=== PATIENT | female | born 1975 | race Caucasian/White ===

== ENCOUNTER 2022-10-16 19:53 | Emergency (ER) | payer OTHER, SELFPAY ==
[2022-10-16] VITALS (8 sets, daily range): BP systolic 142–168; BP diastolic 87–98; PULSE 110–123; RESP 18–26; TEMP 36.4–36.6; O2SAT 97–99
--- NOTE | ~2022-10-16 | XR_ITS ---
EXAMINATION: XR chest 2V DATE: 10/16/2022 21:27 INDICATION: Influenza presenting with cough and fever TECHNIQUE: PA and lateral views of the chest were obtained. COMPARISON: None FINDINGS: The lungs are clear with no focal airspace opacities, pulmonary edema, pleural effusion or pneumothor ax. The cardiomediastinal silhouette is normal. Surgical clips in the upper abdomen likely related to prior cholecystectomy. IMPRESSION: 1. No acute cardiopulmonary disease. Reviewed, dictated and finalized at location A. IR WELDER
[2022-10-16] MEDS: IPRATROPIUM 0.5 MG/ALBUTEROL SULFATE 2.5 MG AMPUL.NEB 3 ML INHALATION (20:35)
--- NOTE | 2022-10-16 21:02 | ED.GENADULT ---
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 SHE WAS SEEN BY HER PRIMARY CARE AND GOT STARTED AUGMENTIN WEEK AND HALF AGO SHE FINISHED THAT. AND THOUGHT SHE WAS GETTING BETTER BUT THEN SHE GOT WORSE 8 DAYS AGO SHE WAS AGAIN SEEN BY HER PRIMARY CARE AND PLACED ON A 5 DAY COURSE OF STEROIDS. SHE COMPLAINS OF PERSISTENT COUGH WITH THE SHORTNESS OF BREATH WITHOUT ANY CHEST PAIN NAUSEA VOMITING DIARRHEA SHE HAS HAD A FEVER. GENERAL ACHINESS AND FATIGUE. DENIES ANY NAUSEA VOMITING DIARRHEA CONSTIPATION BLEEDING OR BRUISING RASH OR ITCHING OR ANY OTHER COMPLAINTS. Related Data Home Medications Medication Instructions Recorded Confirmed simvastatin 20 mg tablet 20 mg PO DAILY 10/16/22 10/16/22 Allergies Allergy/AdvReac Type Severity Reaction Status Date / Time Sulfa (Sulfonamide Allergy Unknown Verified 10/16/22 20:06 Antibiotics) Review of Systems Review of Systems: All systems reviewed & are unremarkable except as noted in HPI and below Constitutional: Constitutional: Reports as per HPI and Reports no additional constitutional complaints Eyes: Eyes: Reports no additional eye complaints ENT: Reports system reviewed and no additional complaints, except as documented, Reports nasal congestion and Denies sore throat Cardiovascular: Cardiovascular: Reports no additional cardiovascular complaints and Denies chest pain Respiratory: Respiratory: Reports as per HPI, Reports no additional respiratory complaints, Reports chest congestion, Reports cough, Reports dyspnea and Reports wheezing Gastrointestinal: Gastrointestinal: Reports as per HPI and Reports no additional gastrointestinal complaints Genitourinary: Genitourinary: Reports no additional female genitourinary complaints and Reports as per HPI Musculoskeletal: Musculoskeletal: Reports no additional musculoskeletal complaints Comments: MYALGIAS Integumentary/Breasts: Skin/Breast: Reports as per HPI Neurologic: Reports system reviewed and no additional complaints, except as documented Exam Narrative: PATIENT IS A WHITE FEMALE SHE APPEARS IN NO APPARENT DISTRESS. HEAD IS NORMOCEPHALIC ATRAUMATIC EYES PUPILS ARE EQUAL ROUND REACT LIGHT EXTRAOCULAR MOVEMENTS ARE INTACT CONJUNCTIVA PINK SCLERA NONICTERIC. OROPHARYNX IS CLEAR WITH MOIST MUCOUS MEMBRANES WITHOUT EXUDATES. NECK IS SUPPLE NO LYMPHADENOPATHY. LUNGS SHOW SCATTERED WHEEZES WITH FAIR AIR EXCHANGE WITHOUT RHONCHI OR RALES. HEART IS REGULAR RATE AND RHYTHM WITHOUT MURMURS GALLOPS OR RUBS TACHYCARDIA WITH A PULSE OF 118 RESPIRATORY RATE 26 REPEAT 18 BLOOD PRESSURE 160/98 AFEBRILE 97% SAT ON ROOM AIR. ABDOMEN IS SOFT AND NONTENDER. EXTREMITIES NO CYANOSIS CLUBBING OR EDEMA. NEUROLOGICAL SHE IS ALERT AND ORIENTED X4 MOTOR AND SENSORY GROSSLY INTACT. SKIN IS WARM AND DRY. Const: Limitations: no limitations Course Course Emergency Course: PATIENT WAS GIVEN DUONEB NEBULIZER SHE SAID SHE COULD BREATHE DEEPER AND BETTER WITH THIS. RESPIRATORY CAME AND SHOWED PATIENT HOW TO USE AN ALBUTEROL INHALER WITH A SPACER. PATIENT WAS NEGATIVE FOR COVID AND RSV SHE WAS POSITIVE FOR FLU A. Vital Signs Vital signs: Vital Signs Temperature 36.4 C L 10/16/22 20:07 Pulse Rate 118 H 10/16/22 20:07 Respiratory Rate 26 H 10/16/22 20:07 Blood Pressure 168/98 H 10/16/22 20:07 Pulse Oximetry 97 10/16/22 20:07 Oxygen Delivery Room Air 10/16/22 20:07 Temperature 36.4 C L 10/16/22 20:07 Pulse Rate 110 H 10/16/22 20:48 Respiratory Rate 19 10/16/22 20:48 Blood Pressure 168/98 H 10/16/22 20:07 Pulse Oximetry 98 10/16/22 20:48 Oxygen Delivery Room Air 10/16/22 20:07 Medical Decision Making Vital Signs Vital Signs: Vital Signs
[2022-10-16 21:04] LABS: Influenza A QL RT-PCR Positive (Negative); Influenza B QL RT-PCR Negative (Negative); RSV RNA, RT-PCR Negative (Negative); SARS-CoV-2 RNA PCR Negative (Negative)
[2022-10-16] MEDS: ALBUTEROL SULFATE NEB 2.5 MG/3 ML INH 5 MG INHALATION (21:36)
[2022-10-16] MEDS: ALBUTEROL SULFATE (*SP) INHALER 2 PUFF INHALATION (22:09)
== END 2022-10-16 22:18 | disposition home or self-care (01) ==
PROVIDERS: Emergency Provider Emergency Medicine; PCP Family Medicine
DX: J10.1 Influenza due to other identified influenza virus with other respiratory manifestations (principal); J98.01 Acute bronchospasm; E78.5 Hyperlipidemia, unspecified; Z20.822 Contact with and (suspected) exposure to COVID-19
CPT/HCPCS: 71046; 87637; 94640; 99285; A9270

== ENCOUNTER 2022-10-20 10:38 | Inpatient (IN) | payer OTHER, SELFPAY ==
[2022-10-20] VITALS (9 sets, daily range): BP systolic 129–143; BP diastolic 66–81; PULSE 80–96; RESP 17–20; TEMP 36.3–38.6; O2SAT 98–100; BMI 34.5
--- NOTE | ~2022-10-20 | CT_ITS ---
EXAMINATION: CTA chest PE protocol DATE: 10/21/2022 14:27 INDICATION: Shortness of breath for one month. Elevated d-dimer. TECHNIQUE: Computed tomography angiography (CTA) of the chest was performed with 100 mL Omnipaque-350 intravenous contrast timed to evaluate the pulmonary arteries. Coronal maximum intensity projection 3D-reconstructions were created by the technologist. Automated exposure control and iterative reconst ruction technique were employed. Exam dose: 471.43 mGy-cm total exam DLP. COMPARISON: 10/20/2022 portable AP chest 10/16/2022 PA and lateral chest FINDINGS: There is moderate opacification the pulmonary arteries, without evidence of pulmonary embol ism. There are extensive patchy consolidation scattered throughout both lungs, without pleural effusion, s uspicious for bilateral extensive Covid pneumonia. 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 No thoracic aortic dis section. Heart size is within normal range. No pericardial effusion. No hilar or mediastinal mass lesion or lymphadenopathy. Status post cholecystectomy. Included portions of the adrenal glands and skeletal structures are normal. IMPRESSION: Extensive bilateral pulmonary infiltrates suggestive of Covid pneumonia No evidence of pulmonary embolism Mild posterior thoracic aortic arch aneurysm Reviewed, dictated and finalized at Location [facility]. Reviewed, dictated and finalized at location B. ND MIXER IMPRESSION: Extensive bilateral pulmonary infiltrates suggestive of Covid pneu monia No evidence of pulmonary embolism Mild posterior thoracic aortic arch aneurysm
--- NOTE | ~2022-10-20 | CT_ITS ---
EXAMINATION: CT abdomen pelvis wo con DATE: 10/22/2022 11:22 INDICATION: Low abdominal tenderness. TECHNIQUE: Computed tomography (CT) of the abdomen and pelvis was performed without intravenous contr ast. Automated exposure control and iterative reconstruction technique were employed. The dose-length product was 1257.14 mGy-cm. COMPARISON: Chest CT 10/21/2022 FINDINGS: The visualized portions of the lung bases demonstrate patchy airspace and groundglass opaci ties with a peripheral predominance. No pleural effusion. The heart size is normal. No pericardial ef fusion. There is a small sliding hiatal hernia. The liver is normal. There are changes of cholecystec monika. The spleen, pancreas, and adrenal glands are normal. There are two 1-2 mm stones in right kidne y. There is a 3.1 cm cyst in left kidney. There are nabothian cysts in the cervix. There are no dilat ed loops of bowel. The appendix is normal. There is enlargement of the right rectus abdominis muscle with an ill-defined mixed hyperdense and hypodense mass, consistent with a hematoma. There are no pat hologically enlarged lymph nodes. There is no free intraperitoneal fluid. There is mild lumbar spondy losis. IMPRESSION: 1. Hematoma in right rectus abdominis muscle. 2. Diffuse lung disease, consistent with pneumonia. Reviewed, dictated and finalized at location A. KER TABLE WORKER
--- NOTE | ~2022-10-20 | XR_ITS ---
EXAMINATION: XR chest 1V portable DATE: 10/20/2022 11:44 INDICATION: Cough. TECHNIQUE: A single frontal view of the chest was obtained. COMPARISON: Chest 2 views 10/16/2022 FINDINGS: The patient is rotated to her left. There are mild airspace opacities in right lower lung z one and left mid and lower lung zones. No pleural effusion or pneumothorax. The heart size is normal. IMPRESSION: 1. Worsened mild airspace opacities in right lower lung zone and left mid and lower lung zones, consi stent with atelectasis versus pneumonia. Reviewed, dictated and finalized at location A. S RE[employer]ENT[employer] IMPRESSION: 1. Worsened mild airspace opacities in right lower lung zone and left mid and l ower lung zones, consistent with atelectasis versus pneumonia.
--- NOTE | 2022-10-20 10:55 | ED.URI ---
HPI - URI/Sore Throat General Chief Complaint: Upper Respiratory Infection Stated Complaint: fever/cough/chest pain/ Time Seen by Provider: 10/20/22 10:55 Source: patient Mode of arrival: ambulatory History of Present Illness HPI Narrative: 47-year-old female was noted to have upper respiratory tract infection with bronchospasm. She was treated with a course of Augmentin which she finished 4 days ago. She presented to the ER on 10/16/2022 and was noted to be positive for influenza A. She had bronchospasm and was treated with bronchodilators and prednisone 40 mg daily. She continues to have ongoing -- cough with mucopurulent sputum -- fever which is subjective. -- Shortness of breath -- Chest wall pain involving the lower ribs in the upper abdomen which is made worse with coughing. no chest pain MD elicited complaint: fever and cough Onset (ago): day(s) ( symptoms started approximately 2 weeks ago.) Consistency: intermittent Severity: moderate Description of mucous: green Able to tolerate fluids by mouth: Yes Exacerbating factors: nothing Relieving factors: nothing Associated symptoms: fever, chills, cough and shortness of breath Treatments prior to arrival: none Related Data Home Medications Medication Instructions Recorded Confirmed simvastatin 20 mg tablet 20 mg PO DAILY 10/16/22 10/20/22 trazodone 100 mg tablet 100 mg PO QHS 10/20/22 10/20/22 venlafaxine 75 mg capsule,extended 75 mg PO DAILY 10/20/22 10/20/22 release 24 hr Allergies Allergy/AdvReac Type Severity Reaction Status Date / Time Sulfa (Sulfonamide Allergy Unknown Verified 10/20/22 10:53 Antibiotics) Review of Systems Review of Systems: All systems reviewed & are unremarkable except as noted in HPI and below Constitutional: Constitutional: Reports as per HPI and Reports no additional constitutional complaints Eyes: Eyes: Reports as per HPI and Reports no additional eye complaints ENT: Reports system reviewed and no additional complaints, except as documented and Reports as per HPI Cardiovascular: Cardiovascular: Reports as per HPI and Reports no additional cardiovascular complaints Respiratory: Respiratory: Reports as per HPI, Reports cough and Reports dyspnea Gastrointestinal: Gastrointestinal: Reports as per HPI and Reports no additional gastrointestinal complaints Genitourinary: Genitourinary: Reports no additional female genitourinary complaints and Reports as per HPI Musculoskeletal: Musculoskeletal: Reports no additional musculoskeletal complaints and Reports as per HPI Integumentary/Breasts: Skin/Breast: Reports system reviewed and no additional complaints, except as docu and Reports as per HPI Neurologic: Reports system reviewed and no additional complaints, except as documented and Reports as per HPI Psychiatric: Psychiatric: Reports no additional psychiatric complaints and Reports anxiety Endocrine: Endocrine: Reports no additional endocrine complaints and Reports as per HPI Hematologic/Lymphatic: Hematologic/Lymphatic: Reports no additional hematologic/lymphatic complaints and Reports as per HPI Allergic/Immunologic: Allergic/Immunologic: Reports no additional allergic/immunologic complaints and Reports as per HPI Exam Const: General: healthy appearing and no acute distress Nutritional Appearance: well nourished Orientation/consciousness: patient oriented x3 Limitations: no limitations HENMT: Head: normal to inspection Ears: external ears normal Face/Nose/Sinus: Normal external nose present Face and sinus: normal facial exam Mouth: Yes Normal oral and palatal mucosa present Throat: posterior oropharynx normal Eyes: Conjunctivae: conjunctivae normal Pupils: Equal, round and reactive pupils present EOM: EOMs intact bilaterally Direct Ophthalmoscopy: no photophobia Neck: Neck: normal visual inspection, no lymphadenopathy and no meningeal signs Chest: Chest palpation & inspection: normal inspection of the adrian
[2022-10-20 11:41] LABS: Hematocrit 26.2 % (35.0-49.0); Hemoglobin 7.2 g/dL (12.0-15.0); Mean Corpuscular HGB Conc 27.5 g/dL (32.0-36.0); Mean Corpuscular Hemoglobin 19.3 pg (27.0-31.0); Mean Corpuscular Volume 70.1 fL (78.0-102.0); Mean Platelet Volume 9.6 fl (9.2-11.8); Platelet Count Result 154 K/mm3 (150-420); Red Blood Count 3.74 M/mm3 (4.20-5.40); Red Cell Distribution Width 20.5 % (11.6-14.4); White Blood Count 3.6 K/mm3 (4.8-10.8)
[2022-10-20 11:43] LABS: Add Urine Microscopic? YES; Appearance Urine Clear (Clear); Bilirubin Urine Negative (Negative); Blood Urine Negative (Negative); Color Urine Yellow (Yellow); Glucose Urine UA Negative (Negative); Ketones Urine Trace (Negative); Leukocyte Esterase Ur Negative (Negative); Nitrate Urine Negative (Negative); Protein Urine Trace (Negative); Specific Grav Ur 1.025 (1.010-1.020)
[2022-10-20 11:49] LABS: Bacteria Urine Trace /hpf; Mucus Urine Moderate /lpf; RBC Urine None seen /hpf (0-2); Squamous Epithelial Cell Urine Moderate /hpf (Few); WBC Urine 0-3 /hpf (0-3)
[2022-10-20 11:55] LABS: INR 0.9; Prothrombin Time 10.3 Seconds (9.50-12.10)
[2022-10-20 12:00] LABS: Band Neutrophils Percent 4 % (0-6); Basophils Percent Manual 0 % (0-1); Eosinophils Absolute Manual 0.03 K/mm3 (0.02-0.5); Eosinophils Percent Manual 1 % (1-6); Lymphocytes Absolute Manual 0.21 K/mm3 (1.1-4.5); Lymphocytes Percent Manual 6 % (18-44); Monocytes Absolute Manual 0.07 K/mm3 (0.1-0.90); Monocytes Percent Manual 2 % (3-9); Neutrophils Absolute Manual 3.27 K/mm3 (1.7-7.2); Neutrophils Percent Manual 87 % (46-73); Platelet Estimate Adequate (Adequate); Total Cells Counted 100
[2022-10-20 12:08] LABS: Pregnancy On Board Control Positive; Urine Pregnancy Test Negative
[2022-10-20 12:28] LABS: Immature Reticulocyte Fraction 14.1 % (2.0-16.52); Reticulocyte Hemoglobin Conten 21.1 pg (28.0-35.0); Reticulocyte Percent 0.47 % (0.50-1.50); Reticulocytes Absolute 0.02 M/mm3 (0.02-0.1)
--- NOTE | 2022-10-20 13:01 | PC.NURSE ---
LUNCH TRAY ORDERED PER ERP REQUEST
[2022-10-20 13:14] LABS: Iron 14 ug/dL (50-170); Percent Iron Saturation 3 % (12-57)
[2022-10-20 13:17] LABS: Anion Gap 10 mmol/L (8-16); Blood Urea Nitrogen 10 mg/dL (7-18); Calcium 8.8 mg/dL (8.5-10.1); Carbon Dioxide 26 mmol/L (21-32); Chloride 101 mmol/L (98-108); Estimated CRCL calculation 71 ml/min; Estimated Glomerular Filt Rate 59; Glucose 149 mg/dL (70-99); Osmolality Calculated 286 mOsm/kg (285-295); Potassium 3.7 mmol/L (3.5-5.1); Sodium 137 mmol/L (136-145)
[2022-10-20 13:18] LABS: Alanine Aminotransferase 83 U/L (14-59); Albumin Level 3.1 g/dL (3.4-5.0); Alkaline Phosphatase 75 U/L (46-116); Aspartate Amino Transferase 107 U/L (15-37); Bilirubin,Total 0.2 mg/dL (0.00-1.00); Total Protein 7.6 g/dL (6.4-8.2)
[2022-10-20 13:25] LABS: NT Pro B Type Natriuretic Pept 64 pg/mL (0-125)
[2022-10-20 13:29] LABS: Lactic Acid Reflex 1.2 mmol/L (0.4-2.0)
[2022-10-20 13:30] LABS: Lactate Dehydrogenase 393 U/L (81-234); Troponin I 17.6 ng/L (0.00-60.4)
[2022-10-20] MEDS: guaiFENesin/DEXTROMETHORPHAN 5 ML UDC PO (14:46)
[2022-10-20] MEDS: ONDANSETRON INJ 4 MG/2 ML VIAL IV PUSH ×2 (14:46→20:59)
[2022-10-20] MEDS: BENZONATATE 100 MG CAPSULE PO (14:46)
[2022-10-20] MEDS: ACETAMINOPHEN 325 MG TABLET 650 MG PO (15:43)
[2022-10-20] MEDS: traZODone HCL 50 MG TABLET 100 MG PO (21:00)
[2022-10-21] VITALS (15 sets, daily range): BP systolic 116–120; BP diastolic 61–70; PULSE 68–119; RESP 18–20; TEMP 36.1–38.6; O2SAT 80–98
--- NOTE | 2022-10-21 00:20 | PC.NURSE ---
Pt resting quietly in bed and has a temperature of 101.4. Pt given tylenol 650 mg PO to relieve elevated temperature.
[2022-10-21] MEDS: ACETAMINOPHEN 325 MG TABLET 650 MG PO (00:21)
--- NOTE | 2022-10-21 01:30 | PC.NURSE ---
Pt's temp is 97.5 per temporal scanner. Pt doesnt voice any c/o pain at this time.
--- NOTE | 2022-10-21 04:15 | PC.NURSE ---
Pt's SAO2 is 80% on room air; Pt started on oxygen at 3 liters per nasal cannula and SAO2 increased to 96% with oxygen on at 3 liters.
--- NOTE | 2022-10-21 05:19 | PC.NURSE ---
Pt's SAO2 rechecked and was 96%; Oxygen was titrated down to 2 liters and pt's saturation was 95% with oxygen on at 2 liters.
--- NOTE | 2022-10-21 05:35 | PC.NURSE ---
Pt's sister, Kyleigh Fisher, called to check on pt's night. Report given at this time.
[2022-10-21 05:44] LABS: Hematocrit 25.6 % (35.0-49.0); Hemoglobin 7.2 g/dL (12.0-15.0); Mean Corpuscular HGB Conc 28.1 g/dL (32.0-36.0); Mean Corpuscular Hemoglobin 19.7 pg (27.0-31.0); Mean Corpuscular Volume 69.9 fL (78.0-102.0); Mean Platelet Volume 9.7 fl (9.2-11.8); Platelet Count Result 140 K/mm3 (150-420); Red Blood Count 3.66 M/mm3 (4.20-5.40); Red Cell Distribution Width 20.6 % (11.6-14.4); White Blood Count 3.7 K/mm3 (4.8-10.8)
[2022-10-21 05:52] LABS: Anion Gap 7 mmol/L (8-16); Blood Urea Nitrogen 10 mg/dL (7-18); Calcium 8.8 mg/dL (8.5-10.1); Carbon Dioxide 31 mmol/L (21-32); Chloride 101 mmol/L (98-108); Estimated CRCL calculation 73 ml/min; Estimated Glomerular Filt Rate > 60; Glucose 125 mg/dL (70-99); Osmolality Calculated 288 mOsm/kg (285-295); Sodium 139 mmol/L (136-145)
[2022-10-21 06:01] LABS: Band Neutrophils Percent 0 % (0-6); Lymphocytes Absolute Manual 1.22 K/mm3 (1.1-4.5); Lymphocytes Percent Manual 33 % (18-44); Neutrophils Absolute Manual 2.36 K/mm3 (1.7-7.2); Neutrophils Percent Manual 64 % (46-73); Total Cells Counted 100
[2022-10-21 06:02] LABS: Atypical Lymphocytes Present; Basophils Percent Manual 0 % (0-1); Eosinophils Percent Manual 0 % (1-6); Monocytes Absolute Manual 0.11 K/mm3 (0.1-0.90); Monocytes Percent Manual 3 % (3-9); Nucleated Red Blood Cells 2 %; Platelet Estimate Adequate (Adequate)
--- NOTE | 2022-10-21 06:10 | PC.NURSE ---
Kishan De León NP, notified of pt's low SA02 at 0400 and oxygen being ordered for pt. No new orders at this time.
[2022-10-21] MEDS: VENLAFAXINE HCL XR 75 MG CAP.ER.24H PO (09:01)
[2022-10-21] MEDS: SIMVASTATIN 10 MG TABLET 20 MG PO (09:01)
[2022-10-21] MEDS: ENOXAPARIN 40 MG/0.4 ML SYRINGE SUB-Q (09:02)
--- NOTE | 2022-10-21 11:33 | PM.SD2 ---
Same Day Admit/Disch: HPI History of Present Illness Chief complaint: fever/cough/chest pain/ Narrative: Ninfa Fisher is a 47 year old female That presented to arm urgency department with complaints of fever cough and discomfort due to excessive coughing with shortness of breath. Patient has a past medical history of high cholesterol and depression. According to patient she has been sick for approximately 2 months now. Patient notes that she went to her primary care physician on the and and was prescribed antibiotics. She is unsure why she received antibiotics. Patient tested positive for influenza on 10/16/2022. patient notes that her condition improved but worsened once again she continued to experience excessive coughing, and shortness of breath. Patient WBC 3.6, hemoglobin 7.2, hematocrit 26.2, platelets 159, sodium 137, potassium 3.7, BUN 10, creatinine 1.00, glucose 149, lactic acid 1.2, RN 14, TIBC 433 AST 107 ALT 83 troponin 17.6 BUN 64 chest x-ray indicates pneumonia. Patient will be treated for pneumonia with azithromycin Rocephin. patient will require home oxygen on discharge. Patient continues to complain of dizziness rib pain due to excessive coughing and shortness of breath. The patient denies CP, palpitation, extremity numbness, lightheadedness, constipation, diarrhea, chills, or fever. [facility] Past Medical History Medical History (Updated 10/21/22 @ 12:46 by FLACA Rea) Depressed HLD (hyperlipidemia) Social History Social History Smoking status: Never smoker Alcohol intake: current Drinks per week: 1 Substance use: never Substance use type: does not use Lack of Transportation: No Lack of Food: Never True Current Housing: I Have Housing Concerned About Future Housing: No Difficulty Paying Gas/Electric Bills: No Difficulty Paying for Meds: No Currently Unemployed: No Education: High School Diploma/GED Difficulty w/ Childcare or Family Care: No Spiritual care concerns: No Same Day Admit/Disch: Med Pre-admit Medications Home Medications Medication Instructions Recorded Confirmed Type prednisone 20 mg tablet 40 mg PO DAILY 5 days #10 tabs 10/16/22 10/20/22 Rx simvastatin 20 mg tablet 20 mg PO DAILY 10/16/22 10/20/22 History trazodone 100 mg tablet 100 mg PO QHS 10/20/22 10/20/22 History venlafaxine 75 mg capsule,extended 75 mg PO DAILY 10/20/22 10/20/22 History release 24 hr Exam Narrative: GENERAL: This is a well-nourished, Appears to have a mental delay, in no apparent distress. HEAD: normocephalic, atraumatic. EYES: PERRL. Sclera clear/white. Vision is grossly intact. EARS: External ears normal, auditory canals clear and without drainage, TMs normal without perforation. Hearing grossly intact. NOSE: External nose normal with no obvious nasal discharge, nares without redness, no rhinorrhea. THROAT: Mucous membranes moist, posterior pharynx clear. NECK: Neck supple, non-tender without lymphadenopathy, masses or thyromegaly. CARDIOVASCULAR: Regular rate and rhythm without murmurs, gallops, or rubs. RESPIRATORY: Clear to auscultation. Breath sounds equal bilaterally. No wheezes, rales, or rhonchi. GASTROINTESTINAL: Abdomen soft, non-tender, nondistended. Bowel sounds are active. No hepato-splenomegaly, or palpable masses. No guarding. SKIN: warm, intact with no suspicious lesions or rash, good texture and turgor. NEURO: awake, alert, and oriented to person, place and time. There were no obvious focal neurologic abnormalities. EXTREMITIES: Normal range of motion. No edema. No calf tenderness. DS: Data Data Completed and Pending Labs on day of discharge: Labs from last 24 hours 10/21/22 10/21/22 10/20/22 04:51 04:51 11:34 WBC 3.7 L RBC 3.66 L Hgb 7.2 L Hct 25.6 L MCV 69.9 L MCH 19.7 L MCHC 28.1 L RDW 20.6 H Plt Count 140 L MPV 9.7 Immatu
--- NOTE | 2022-10-21 12:28 | HOMEO2EVAL ---
Evaluation was performed at [facility] Home Oxygen Evaluation RC: Home Oxygen (O2) Evaluation Start: 10/21/22 11:12 Freq: ONCE Status: Active Protocol: RPE Activity Type Activity Date Activity User E-sign Co-sign Detail Recorded Client Recorded Date Recorded By Document 10/21/22 11:30 [email or web address] [email or web address] 10/21/22 12:27 SJB Document 10/21/22 11:33 [email or web address] [email or web address] 10/21/22 12:27 SJB Document 10/21/22 11:35 [email or web address] 10/21/22 12:27 SJB Document 10/21/22 11:40 [email or web address] [email or web address] 10/21/22 12:27 SJB 10/21/22 10/21/22 10/21/22 11:30 11:33 11:35 Home O2 Evaluation [Oxygen] -Test Phase Resting Resting Resting -Oxygen Delivery Room Air Nasal Cannula Nasal Cannula -Oxygen Flow Rate (L/min) 1 2 [Pulse Oximetry] -Pulse Oximetry (90-100 %) 80 L 87 L 92 [Pulse Rate] -Pulse Rate (60-100 beats/min) 107 H 99 97 [Evaluation] -Activity Tolerance -Rating of Perceived Dyspnea (PD) -Rate of Perceived Exertion (PE) Query Text:Click the Protocol Button to View the RPE Scale [Exercise] -Ambulation Distance (feet) -Ambulation Distance (meters) [Comments] -Home Oxygen Evaluation Comments Pt's Sp02 was At rest on 1 Pt's Sp02 is 92 80% on r/a, lpm, pt's Sp02 % on 2 lpm, will start on only got up to will begin walk 02 at 1 lpm. 87%. Pt taught now in room PLB. Will due to being on increase to 2 precautions. lpm. [Charges] -Treatment Charges O2 Evaluation - Outpatient 10/21/22 11:40 Home O2 Evaluation [Oxygen] -Test Phase -Oxygen Delivery Nasal Cannula -Oxygen Flow Rate (L/min) 2 [Pulse Oximetry] -Pulse Oximetry (90-100 %) 91 [Pulse Rate] -Pulse Rate (60-100 beats/min) 119 H [Evaluation] -Activity Tolerance Fair -Rating of Perceived Dyspnea (PD) +2 Mild, Some Difficulty, Noticeable to the Observer -Rate of Perceived Exertion (PE) 15 Hard Query Text:Click the Protocol Button to View the RPE Scale [Exercise] -Ambulation Distance (feet) 800 -Ambulation Distance (meters) 243.82 [Comments] -Home Oxygen Evaluation Comments Pt walked approx 80 ft on 2 lpm in room. Sp02s stayed between 90-91%. HR up to 119. Pt did not complain of SOB , her c/o were of becoming dizzy and nauseated while walking. She stated she needed to stop at that time. [Charges] -Treatment Charges
[2022-10-21] MEDS: IBUPROFEN 400 MG TABLET PO (12:30)
--- NOTE | 2022-10-21 12:51 | ECG_ITS ---
Measurements Intervals [place] Rate: 79 P: 44 OH: 126 QRS: 62 QRSD: 98 T: 27 QT: 358 QTc: 411 Interpretive Statements SINUS RHYTHM DELAYED PRECORDIAL R/S TRANSITION BORDERLINE ST-T WAVE ABNORMALITY- INFERIOR LEADS BASELINE WANDER- V4-V6 BORDERLINE ECG NO PREVIOUS ECG AVAILABLE FOR COMPARISON Electronically Signed On 10-21-2022 13:57:17 EDITOR DEPARTMENT by Jose L Bowman D.O.
[2022-10-21] MEDS: ONDANSETRON INJ 4 MG/2 ML VIAL IV PUSH (13:05)
[2022-10-21 14:03] LABS: Thyroid Stimulating Hormone 0.31 uIU/mL (0.36-3.74)
[2022-10-21 14:05] LABS: Ferritin 159 ng/mL (8-252); Folic Acid 12.6 ng/mL (8.6->20); Vitamin B12 1082 pg/mL (193-986)
[2022-10-21] MEDS: BENZONATATE 100 MG CAPSULE PO (20:08)
[2022-10-21] MEDS: traZODone HCL 50 MG TABLET 150 MG PO (20:08)
[2022-10-21] MEDS: ENOXAPARIN 100 MG/ML SYRINGE 97 MG SUB-Q (20:08)
[2022-10-21] MEDS: guaiFENesin/DEXTROMETHORPHAN 5 ML UDC PO (20:09)
[2022-10-22] VITALS (11 sets, daily range): BP systolic 100–117; BP diastolic 51–73; PULSE 68–87; RESP 14–18; TEMP 36.4–37.1; O2SAT 90–97
[2022-10-22 05:17] LABS: Hematocrit 24.2 % (35.0-49.0); Mean Corpuscular HGB Conc 27.7 g/dL (32.0-36.0); Mean Corpuscular Hemoglobin 19.3 pg (27.0-31.0); Mean Corpuscular Volume 69.7 fL (78.0-102.0); Mean Platelet Volume 10.1 fl (9.2-11.8); Platelet Count Result 150 K/mm3 (150-420); Red Blood Count 3.47 M/mm3 (4.20-5.40); Red Cell Distribution Width 20.6 % (11.6-14.4); White Blood Count 4.5 K/mm3 (4.8-10.8)
[2022-10-22 05:24] LABS: Hemoglobin 6.7 g/dL (12.0-15.0)
--- NOTE | 2022-10-22 05:25 | PC.NURSE ---
Lab called to report a critical Hgb of 6.7.
[2022-10-22 05:34] LABS: Alanine Aminotransferase 50 U/L (14-59); Albumin Level 2.6 g/dL (3.4-5.0); Alkaline Phosphatase 63 U/L (46-116); Anion Gap 6 mmol/L (8-16); Aspartate Amino Transferase 88 U/L (15-37); Bilirubin,Total 0.2 mg/dL (0.00-1.00); Blood Urea Nitrogen 10 mg/dL (7-18); Calcium 8.8 mg/dL (8.5-10.1); Carbon Dioxide 32 mmol/L (21-32); Chloride 101 mmol/L (98-108); Estimated CRCL calculation 84 ml/min; Estimated Glomerular Filt Rate > 60; Glucose 112 mg/dL (70-99); Magnesium 1.7 mg/dL (1.8-2.4); Osmolality Calculated 288 mOsm/kg (285-295); Potassium 4.1 mmol/L (3.5-5.1); Sodium 139 mmol/L (136-145)
--- NOTE | 2022-10-22 06:23 | PC.NURSE ---
Kashif Mckinney NP, returned voice mail message regarding pt's critical Hgb; New orders received and noted.
[2022-10-22] MEDS: SIMVASTATIN 10 MG TABLET 20 MG PO (08:33)
[2022-10-22] MEDS: VENLAFAXINE HCL XR 75 MG CAP.ER.24H PO (08:33)
--- NOTE | 2022-10-22 09:06 | PC.NURSE ---
LAC IV site leaking. transfusion stopped at 0855. New IV site established in right wrist. Transfusion restarted at 0900
[2022-10-22] MEDS: ACETAMINOPHEN 325 MG TABLET 650 MG PO (09:08)
[2022-10-22] MEDS: BENZONATATE 100 MG CAPSULE PO ×2 (09:08→20:25)
[2022-10-22] MEDS: SODIUM CHLORIDE 0.9% IV 250 ML 30 ML IV CONT (09:40)
--- NOTE | 2022-10-22 09:48 | ADMGEN ---
This patient, Ninfa Fisher, was admitted to 2nd Floor Room 226-2. Patient/family oriented to hospital policies and general routines including ID bracelet, bed and alarms, visiting hours, pain management, procedures, bathroom and other care routines, personal items, smoking policy, room service/diet, and visiting hours. Information on how to activate the Rapid Response Team has been discussed. Patient/Family are encouraged to report perceived risks to care and to ask questions if they do not understand what they are told or what they should do.
--- NOTE | 2022-10-22 09:49 | PC.NURSE ---
Blood product increased to 250 ml/hour.
[2022-10-22 10:08] LABS: SARS-CoV-2 RNA PCR Negative (Negative)
[2022-10-22 11:30] LABS: Hematocrit 29.2 % (35.0-49.0); Hemoglobin 8.3 g/dL (12.0-15.0); Mean Corpuscular HGB Conc 28.4 g/dL (32.0-36.0); Mean Corpuscular Hemoglobin 20.8 pg (27.0-31.0); Mean Platelet Volume 9.4 fl (9.2-11.8); Platelet Count Result 157 K/mm3 (150-420); White Blood Count 5.5 K/mm3 (4.8-10.8)
[2022-10-22 11:48] LABS: Occult Blood Negative (Negative)
[2022-10-22 11:54] LABS: Band Neutrophils Percent 0 % (0-6); Lymphocytes Percent Manual 51 % (18-44); Monocytes Absolute Manual 0.38 K/mm3 (0.1-0.90); Monocytes Percent Manual 7 % (3-9); Neutrophils Absolute Manual 2.31 K/mm3 (1.7-7.2); Neutrophils Percent Manual 42 % (46-73); Platelet Estimate Adequate (Adequate); Total Cells Counted 100
[2022-10-22 11:55] LABS: Schistocytes None Seen (NORMAL)
--- NOTE | 2022-10-22 11:55 | WPDPN ---
Progress Note: A&P Assessment and Plan (1) Anemia: Code(s): D64.9 - Anemia, unspecified Status: Acute Assessment and Plan: secondary to a hematoma in the right rectus abdominus muscle CT indicates a hematoma in the right rectus abdominus muscle Patient hemoglobin 7.2>6.7 2 units of PRBCs infuse patient baseline hemoglobin hematocrit 11.4/34.9 per primary care physician's office MCV 69.9, TBI 433, iron 14 ferritin 159 TIMO r/o will monitor H&H for couple days (2) Bilateral pneumonia: Code(s): J18.9 - Pneumonia, unspecified organism Status: Acute Assessment and Plan: chest x-ray indicate pneumonia continue azithromycin Rocephin 3.6 wbc's>3.7>5.5 (3) Dyslipidemia: Code(s): E78.5 - Hyperlipidemia, unspecified Status: Acute Assessment and Plan: continue simvastatin (4) Influenza: Code(s): J11.1 - Influenza due to unidentified influenza virus with other respiratory manifestations Status: Acute Assessment and Plan: influenza positive on 10/16 continue supportive care (5) Depressed: Code(s): F32.A - Depression, unspecified Status: Acute Assessment and Plan: continue home medication (6) HLD (hyperlipidemia): Code(s): E78.5 - Hyperlipidemia, unspecified Status: Acute Assessment and Plan: continue statins (7) Hypoxia: Code(s): R09.02 - Hypoxemia Status: Acute Assessment and Plan: possibly secondary to pneumonia versus influenza versus PE D-dimer pending if positive will order a CTA Subjective Date/time seen: 10/22/22 11:55 Interval history: patient notes that she feels much better, she does occasionally feel short of breath and continues to have right side abdominal pain. The patient denies CP, palpitation, extremity numbness, lightheadedness, dizziness, constipation, diarrhea, chills, or fever. she also complains of heartburn Exam Narrative: GENERAL: This is a well-nourished, Appears to have a mental delay, in no apparent distress. HEAD: normocephalic, atraumatic. EYES: PERRL. Sclera clear/white. Vision is grossly intact. EARS: External ears normal, auditory canals clear and without drainage, TMs normal without perforation. Hearing grossly intact. NOSE: External nose normal with no obvious nasal discharge, nares without redness, no rhinorrhea. THROAT: Mucous membranes moist, posterior pharynx clear. NECK: Neck supple, non-tender without lymphadenopathy, masses or thyromegaly. CARDIOVASCULAR: Regular rate and rhythm without murmurs, gallops, or rubs. RESPIRATORY: Clear to auscultation. Breath sounds equal bilaterally. No wheezes, rales, or rhonchi. GASTROINTESTINAL: Abdomen soft, non-tender, nondistended. Bowel sounds are active. No hepato-splenomegaly, or palpable masses. No guarding. SKIN: warm, intact with no suspicious lesions or rash, good texture and turgor. NEURO: awake, alert, and oriented to person, place and time. There were no obvious focal neurologic abnormalities. EXTREMITIES: Normal range of motion. No edema. No calf tenderness. Objective Data Vital Signs Vital Signs: Vital Signs - 24 hr 10/21/22 12:33 10/21/22 16:00 10/22/22 00:00 Temperature 99.1 F 97 F L 98.7 F Pulse Rate 68 77 Respiratory Rate 18 18 Blood Pressure 120/70 113/68 Pulse Oximetry 92 98 96 Oxygen Delivery Nasal Cannula Nasal Cannula Nasal Cannula Oxygen Flow Rate 2 2 4 10/22/22 07:54 10/22/22 08:40 10/22/22 09:02 Temperature 98.3 F 97.8 F 98 F Pulse Rate 87 76 78 Respiratory Rate 17 16 18 Blood Pressure 106/66 104/58 L 106/60 Pulse Oximetry 94 90 90 Oxygen Delivery Nasal Cannula Oxygen Flow Rate 2 10/22/22 09:18 10/22/22 09:30 10/22/22 10:02 Temperature 98 F 97.6 F 98.1 F Pulse Rate 76 76 68 Respiratory Rate 16 16 18 Blood Pressure 115/66 117/69 100/51 L Pulse Oximetry 92 92 95 Oxygen Delivery Oxygen Flow Rate 10/22/22 10:58
[2022-10-22] MEDS: ONDANSETRON INJ 4 MG/2 ML VIAL IV PUSH (14:09)
--- NOTE | 2022-10-22 14:14 | PC.NURSE ---
Patient experiencing nausea. PRN zofran given
--- NOTE | 2022-10-22 15:42 | PC.NURSE ---
Patient offered pain medication for rib pain from coughing. patient declined
[2022-10-22] MEDS: traZODone HCL 50 MG TABLET 150 MG PO (20:26)
[2022-10-22] MEDS: HYDROcodone/acetaminophen (*CRX) 5-325 MG TABLET 1 TAB PO (20:27)
[2022-10-23] VITALS (8 sets, daily range): BP systolic 110–117; BP diastolic 61–70; PULSE 64–96; RESP 16–20; TEMP 36.4–36.7; O2SAT 90–95
[2022-10-23 05:32] LABS: Hematocrit 27.2 % (35.0-49.0); Hemoglobin 7.8 g/dL (12.0-15.0); Mean Corpuscular HGB Conc 28.7 g/dL (32.0-36.0); Mean Corpuscular Hemoglobin 20.8 pg (27.0-31.0); Mean Corpuscular Volume 72.5 fL (78.0-102.0); Platelet Count Result 141 K/mm3 (150-420); Red Blood Count 3.75 M/mm3 (4.20-5.40); Red Cell Distribution Width 21.3 % (11.6-14.4); White Blood Count 4.5 K/mm3 (4.8-10.8)
[2022-10-23 05:53] LABS: Alanine Aminotransferase 38 U/L (14-59); Albumin Level 2.4 g/dL (3.4-5.0); Alkaline Phosphatase 60 U/L (46-116); Anion Gap 6 mmol/L (8-16); Aspartate Amino Transferase 59 U/L (15-37); Bilirubin,Total 0.3 mg/dL (0.00-1.00); Blood Urea Nitrogen 10 mg/dL (7-18); Calcium 8.4 mg/dL (8.5-10.1); Carbon Dioxide 33 mmol/L (21-32); Chloride 104 mmol/L (98-108); Estimated CRCL calculation 81 ml/min; Estimated Glomerular Filt Rate > 60; Glucose 109 mg/dL (70-99); Magnesium 1.8 mg/dL (1.8-2.4); Osmolality Calculated 296 mOsm/kg (285-295); Potassium 3.9 mmol/L (3.5-5.1); Sodium 143 mmol/L (136-145); Total Protein 6.8 g/dL (6.4-8.2)
[2022-10-23 05:58] LABS: Band Neutrophils Percent 0 % (0-6); Basophils Percent Manual 0 % (0-1); Eosinophils Percent Manual 0 % (1-6); Lymphocytes Absolute Manual 2.52 K/mm3 (1.1-4.5); Lymphocytes Percent Manual 56 % (18-44); Monocytes Absolute Manual 0.49 K/mm3 (0.1-0.90); Monocytes Percent Manual 11 % (3-9); Neutrophils Absolute Manual 1.48 K/mm3 (1.7-7.2); Neutrophils Percent Manual 33 % (46-73)
[2022-10-23 05:59] LABS: Nucleated Red Blood Cells 4 %; Platelet Estimate Adequate (Adequate)
[2022-10-23] MEDS: VENLAFAXINE HCL XR 75 MG CAP.ER.24H PO (08:55)
[2022-10-23] MEDS: CALCIUM CARBONATE (TUMS) 500 MG (200 MG ELEMENTAL) PO (08:55)
[2022-10-23] MEDS: SIMVASTATIN 10 MG TABLET 20 MG PO (08:55)
[2022-10-23] MEDS: ACETAMINOPHEN 325 MG TABLET 650 MG PO (09:12)
--- NOTE | 2022-10-23 10:53 | WPDPN ---
Progress Note: A&P Assessment and Plan (1) Anemia: Code(s): D64.9 - Anemia, unspecified Status: Acute Assessment and Plan: secondary to a hematoma in the right rectus abdominus muscle CT indicates a hematoma in the right rectus abdominus muscle Patient hemoglobin 7.2>6.7> 2 units of PRBCs infuse 8.3>7.8 patient baseline hemoglobin hematocrit 11.4/34.9 per primary care physician's office MCV 69.9, TBI 433, iron 14 ferritin 159 TIMO r/o will monitor H&H for couple days (2) Bilateral pneumonia: Code(s): J18.9 - Pneumonia, unspecified organism Status: Acute Assessment and Plan: chest x-ray indicate pneumonia continue azithromycin Rocephin 3.6 wbc's>3.7>5.5>4.5 (3) Dyslipidemia: Code(s): E78.5 - Hyperlipidemia, unspecified Status: Acute Assessment and Plan: continue simvastatin (4) Influenza: Code(s): J11.1 - Influenza due to unidentified influenza virus with other respiratory manifestations Status: Acute Assessment and Plan: influenza positive on 10/16 continue supportive care (5) Depressed: Code(s): F32.A - Depression, unspecified Status: Acute Assessment and Plan: continue home medication (6) HLD (hyperlipidemia): Code(s): E78.5 - Hyperlipidemia, unspecified Status: Acute Assessment and Plan: continue statins (7) Hypoxia: Code(s): R09.02 - Hypoxemia Status: Acute Assessment and Plan: possibly secondary to pneumonia versus influenza home oxygen evaluation completed Subjective Date/time seen: 10/23/22 10:53 Interval history: patient notes that her coughing has not improved and that her throat feels raw. will add steroids along with albuterol, and abdominal binder and a GI cocktail. patient notes that she also feels dizzy occasionally will do orthostatic blood pressure readings. The patient denies SOB, CP, palpitation, extremity numbness, lightheadedness, , constipation, diarrhea, chills, or fever. Plan to discharge patient tomorrow if her hemoglobin and hematocrit does not drop. will complete a home O2 evaluation today. Exam Narrative: GENERAL: This is a well-nourished, Appears to have a mental delay, in no apparent distress. HEAD: normocephalic, atraumatic. EYES: PERRL. Sclera clear/white. Vision is grossly intact. EARS: External ears normal, auditory canals clear and without drainage, TMs normal without perforation. Hearing grossly intact. NOSE: External nose normal with no obvious nasal discharge, nares without redness, no rhinorrhea. THROAT: Mucous membranes moist, posterior pharynx clear. NECK: Neck supple, non-tender without lymphadenopathy, masses or thyromegaly. CARDIOVASCULAR: Regular rate and rhythm without murmurs, gallops, or rubs. RESPIRATORY: Clear to auscultation. Breath sounds equal bilaterally. No wheezes, rales, or rhonchi. GASTROINTESTINAL: Abdomen soft, non-tender, nondistended. Bowel sounds are active. No hepato-splenomegaly, or palpable masses. No guarding. SKIN: warm, intact with no suspicious lesions or rash, good texture and turgor. NEURO: awake, alert, and oriented to person, place and time. There were no obvious focal neurologic abnormalities. EXTREMITIES: Normal range of motion. No edema. No calf tenderness. Objective Data Vital Signs Vital Signs: Vital Signs - 24 hr 10/22/22 10:58 10/22/22 16:00 10/22/22 23:07 Temperature 98.1 F 97.6 F 97.8 F Pulse Rate 73 78 76 Respiratory Rate 14 16 17 Blood Pressure 105/60 100/66 117/73 Pulse Oximetry 95 97 90 Oxygen Delivery Nasal Cannula Nasal Cannula Oxygen Flow Rate 2 2 10/23/22 08:00 10/23/22 08:00 Temperature 98.0 F Pulse Rate 67 64 Respiratory Rate 20 20 Blood Pressure 111/64 Pulse Oximetry 93 94 Oxygen Delivery Nasal Cannula Nasal Cannula Oxygen Flow Rate 2 2 Intake/Output Intake/Output: Intake & Output 10/20/22 10/21/22 10/22/22 10/23/22
[2022-10-23] MEDS: ALBUTEROL SULFATE (*SP) INHALER 2 PUFF INHALATION ×3 (11:15→20:46)
[2022-10-23] MEDS: MAG HYDROX/ALUMINUM HYD/SIMETH 30 ML, PHENobarb/HYOSCY/ATROPINE/SCOP 32.4 MG, LIDOCAINE... PO (11:16)
[2022-10-23] MEDS: methylPREDNISolone SOD SUCC 40 MG VIAL IV PUSH ×2 (11:16→21:23)
--- NOTE | 2022-10-23 11:41 | HOMEO2EVAL ---
Evaluation was performed at [facility] Home Oxygen Evaluation RC: Home Oxygen (O2) Evaluation Start: 10/21/22 11:12 Freq: ONCE Status: Complete Protocol: RPE Activity Type Activity Date Activity User E-sign Co-sign Detail Recorded Client Recorded Date Recorded By Document 10/21/22 11:30 [email or web address] 10/21/22 12:27 SJB Document 10/21/22 11:33 [email or web address] [email or web address] 10/21/22 12:27 SJB Document 10/21/22 11:35 SJB [email or web address] 10/21/22 12:27 SJB Document 10/21/22 11:40 SJB [email or web address] 10/21/22 12:27 SJB 10/21/22 10/21/22 10/21/22 11:30 11:33 11:35 Home O2 Evaluation [Oxygen] -Test Phase Resting Resting Resting -Oxygen Delivery Room Air -Oxygen Flow Rate (L/min) 1 2 [Pulse Oximetry] -Pulse Oximetry (90-100 %) 80 L 87 L 92 [Pulse Rate] -Pulse Rate (60-100 beats/min) 107 H 99 97 [Evaluation] -Activity Tolerance -Rating of Perceived Dyspnea (PD) -Rate of Perceived Exertion (PE) Query Text:Click the Protocol Button to View the RPE Scale [Exercise] -Ambulation Distance (feet) -Ambulation Distance (meters) [Comments] -Home Oxygen Evaluation Comments Pt's Sp02 was At rest on 1 Pt's Sp02 is 92 80% on r/a, lpm, pt's Sp02 % on 2 lpm, will start on only got up to will begin walk 02 at 1 lpm. 87%. Pt taught now in room PLB. Will due to being on increase to 2 precautions. lpm. [Charges] -Treatment Charges O2 Evaluation - Outpatient 10/21/22 11:40 Home O2 Evaluation [Oxygen] -Test Phase -Oxygen Delivery Nasal Cannula -Oxygen Flow Rate (L/min) 2 [Pulse Oximetry] -Pulse Oximetry (90-100 %) 91 [Pulse Rate] -Pulse Rate (60-100 beats/min) 119 H [Evaluation] -Activity Tolerance Fair -Rating of Perceived Dyspnea (PD) +2 Mild, Some Difficulty, Noticeable to the Observer -Rate of Perceived Exertion (PE) 15 Hard Query Text:Click the Protocol Button to View the RPE Scale [Exercise] -Ambulation Distance (feet) 800 -Ambulation Distance (meters) 243.82 [Comments] -Home Oxygen Evaluation Comments Pt walked approx 80 ft on 2 lpm in room. Sp02s stayed between 90-91%. HR up to 119. Pt did not complain of SOB , her c/o were of becoming dizzy and nauseated while walking. She stated she needed to stop at that time. [Charges] -Treatment Charges
--- NOTE | 2022-10-23 12:07 | HOMEO2EVAL ---
Evaluation was performed at [facility] [place] Home Oxygen Evaluation RC: Home Oxygen (O2) Evaluation Start: 10/21/22 11:12 Freq: ONCE Status: Complete Protocol: RPE Activity Type Activity Date Activity User E-sign Co-sign Detail Recorded Client Recorded Date Recorded By Document 10/21/22 11:30 [email or web address] 10/21/22 12:27 SJB Document 10/21/22 11:33 [email or web address] [email or web address] 10/21/22 12:27 SJB Document 10/21/22 11:35 SJB [email or web address] 10/21/22 12:27 SJB Document 10/21/22 11:40 SJB [email or web address] 10/21/22 12:27 SJB 10/21/22 10/21/22 10/21/22 11:30 11:33 11:35 Home O2 Evaluation [Oxygen] -Test Phase Resting Resting Resting -Oxygen Delivery Room Air -Oxygen Flow Rate (L/min) 1 2 [Pulse Oximetry] -Pulse Oximetry (90-100 %) 80 L 87 L 92 [Pulse Rate] -Pulse Rate (60-100 beats/min) 107 H 99 97 [Evaluation] -Activity Tolerance -Rating of Perceived Dyspnea (PD) -Rate of Perceived Exertion (PE) Query Text:Click the Protocol Button to View the RPE Scale [Exercise] -Ambulation Distance (feet) -Ambulation Distance (meters) [Comments] -Home Oxygen Evaluation Comments Pt's Sp02 was At rest on 1 Pt's Sp02 is 92 80% on r/a, lpm, pt's Sp02 % on 2 lpm, will start on only got up to will begin walk 02 at 1 lpm. 87%. Pt taught now in room PLB. Will due to being on increase to 2 precautions. lpm. [Charges] -Treatment Charges O2 Evaluation - Outpatient 10/21/22 11:40 Home O2 Evaluation [Oxygen] -Test Phase -Oxygen Delivery Nasal Cannula -Oxygen Flow Rate (L/min) 2 [Pulse Oximetry] -Pulse Oximetry (90-100 %) 91 [Pulse Rate] -Pulse Rate (60-100 beats/min) 119 H [Evaluation] -Activity Tolerance Fair -Rating of Perceived Dyspnea (PD) +2 Mild, Some Difficulty, Noticeable to the Observer -Rate of Perceived Exertion (PE) 15 Hard Query Text:Click the Protocol Button to View the RPE Scale [Exercise] -Ambulation Distance (feet) 800 -Ambulation Distance (meters) 243.82 [Comments] -Home Oxygen Evaluation Comments Pt walked approx 80 ft on 2 lpm in room. Sp02s stayed between 90-91%. HR up to 119. Pt did not complain of SOB , her c/o were of becoming dizzy and nauseated while walking. She stated she needed to stop at that time. [Charges] -Treatment Charges RC: Home Oxygen (O2) Evaluation Start: 10/23/22 10:41 Freq: ONCE Status: Active Protocol: RPE Activity Type Activity Date Activity User E-sign Co-sign Detail Recorded Client Recorded Date Recorded By Document 10/23/22 11:00 [email or web address] [email or web address] 10/23/22 12:07 SJB Document 10/23/22 11:10 SJB [email or web address] 10/23/22 12:07 SJB 10/23/22 10/23/22 11:00 11:10 Home O2 Evaluation [Oxygen] -Test Phase Resting Exercise -Oxygen Delivery Room Air Room Air [Pulse Oximetry] -Pulse Oximetry (90-100 %) 93 91 [Pulse Rate] -Pulse Rate (60-100 beats/min) 81 96 [Evaluation] -Activity Tolerance Good -Rating of Perceived Dyspnea (PD) +1 Mild, Noticeable to the Participant but Not to an Observer -Rate of Perceived Exertion (PE) 12 Query Text:Click the Protocol Button to View the RPE Scale [Exercise] -Ambulation Distance (feet) 320 -Ambulation Distance (meters) 97.53 [Comments] -Home Oxygen Evaluation Comments Will begin walk Pt completed pushing walk, walking wheelchair on r approx 320 ft /a. on r/a. Sp02s stayed between 90-92% and HR up to 96. Pt used PLB throughout walk . Pt did c/o some dizziness upon sitting up , but once she got up and moving she did not c/o it anymore. P
--- NOTE | 2022-10-23 12:09 | HOMEO2EVAL ---
Evaluation was performed at [facility] [place] Evaluation [place]: Home Oxygen (O2) Evaluation Start: 10/23/22 10:41 Freq: ONCE Status: Active Protocol: RPE Activity Type Activity Date Activity User E-sign Co-sign Detail Recorded Client Recorded Date Recorded By Document 10/23/22 11:00 [email or web address] [email or web address] 10/23/22 12:07 SJB Document 10/23/22 11:10 SJB [email or web address] 10/23/22 12:07 SJB 10/23/22 10/23/22 11:00 11:10 Home O2 Evaluation [Oxygen] -Test Phase Resting Exercise -Oxygen Delivery Room Air Room Air [Pulse Oximetry] -Pulse Oximetry (90-100 %) 93 91 [Pulse Rate] -Pulse Rate (60-100 beats/min) 81 96 [Evaluation] -Activity Tolerance Good -Rating of Perceived Dyspnea (PD) +1 Mild, Noticeable to the Participant but Not to an Observer -Rate of Perceived Exertion (PE) 12 Query Text:Click the Protocol Button to View the RPE Scale [Exercise] -Ambulation Distance (feet) 320 -Ambulation Distance (meters) 97.53 [Comments] -Home Oxygen Evaluation Comments Will begin walk Pt completed pushing walk, walking wheelchair on r approx 320 ft /a. on r/a. Sp02s stayed between 90-92% and HR up to 96. Pt used PLB throughout walk . Pt did c/o some dizziness upon sitting up , but once she got up and moving she did not c/o it anymore. PLB very much encouraged. Pt breathes rather shallow. [Charges] -Treatment Charges O2 Evaluation - Inpatient
[2022-10-23] MEDS: traZODone HCL 50 MG TABLET 150 MG PO (20:45)
[2022-10-23] MEDS: BENZONATATE 100 MG CAPSULE PO (20:46)
[2022-10-24 05:12] LABS: Hematocrit 26.6 % (35.0-49.0); Hemoglobin 7.6 g/dL (12.0-15.0); Mean Corpuscular HGB Conc 28.6 g/dL (32.0-36.0); Mean Corpuscular Hemoglobin 20.8 pg (27.0-31.0); Mean Corpuscular Volume 72.9 fL (78.0-102.0); Mean Platelet Volume 9.9 fl (9.2-11.8); Platelet Count Result 164 K/mm3 (150-420); Red Blood Count 3.65 M/mm3 (4.20-5.40); Red Cell Distribution Width 21.7 % (11.6-14.4); White Blood Count 3.8 K/mm3 (4.8-10.8)
[2022-10-24 05:29] LABS: Alanine Aminotransferase 37 U/L (14-59); Albumin Level 2.6 g/dL (3.4-5.0); Alkaline Phosphatase 59 U/L (46-116); Anion Gap 5 mmol/L (8-16); Aspartate Amino Transferase 34 U/L (15-37); Bilirubin,Total 0.2 mg/dL (0.00-1.00); Blood Urea Nitrogen 10 mg/dL (7-18); Calcium 8.8 mg/dL (8.5-10.1); Carbon Dioxide 32 mmol/L (21-32); Chloride 105 mmol/L (98-108); Estimated CRCL calculation 88 ml/min; Estimated Glomerular Filt Rate > 60; Glucose 174 mg/dL (70-99); Osmolality Calculated 297 mOsm/kg (285-295); Potassium 4.4 mmol/L (3.5-5.1); Sodium 142 mmol/L (136-145); Total Protein 7.4 g/dL (6.4-8.2)
[2022-10-24 07:41] VITALS: O2SAT 91
[2022-10-24 08:00] VITALS: BP 114/67; PULSE 67; RESP 17; TEMP 36.3; O2SAT 91
--- NOTE | 2022-10-24 09:09 | PM.DS ---
DS: Admitting Diagnosis Discharge Date 10/24/2022 Admitting Diagnosis influenza A, anemia secondary to hematoma to the right rectus abdominis muscle. and pne DS: Discharge Diagnosis Discharge Diagnosis (1) Anemia: Code(s): D64.9 - Anemia, unspecified Status: Acute Assessment and Plan: stable secondary to a hematoma in the right rectus abdominus muscle CT indicates a hematoma in the right rectus abdominus muscle Patient hemoglobin 7.2>6.7> 2 units of PRBCs infuse 8.3>7.8 patient baseline hemoglobin hematocrit 11.4/34.9 per primary care physician's office MCV 69.9, TBI 433, iron 14 ferritin 159 TIMO r/o will monitor H&H for couple days (2) Bilateral pneumonia: Code(s): J18.9 - Pneumonia, unspecified organism Status: Acute Assessment and Plan: chest x-ray indicate pneumonia continue azithromycin Rocephin 3.6 wbc's>3.7>5.5>4.5 (3) Dyslipidemia: Code(s): E78.5 - Hyperlipidemia, unspecified Status: Acute Assessment and Plan: continue simvastatin (4) Influenza: Code(s): J11.1 - Influenza due to unidentified influenza virus with other respiratory manifestations Status: Acute Assessment and Plan: influenza positive on 10/16 continue supportive care (5) Depressed: Code(s): F32.A - Depression, unspecified Status: Acute Assessment and Plan: continue home medication (6) HLD (hyperlipidemia): Code(s): E78.5 - Hyperlipidemia, unspecified Status: Acute Assessment and Plan: continue statins (7) Hypoxia: Code(s): R09.02 - Hypoxemia Status: Acute Assessment and Plan: possibly secondary to pneumonia versus influenza home oxygen evaluation completed DS: Summary Hospital Course Reason for hospitalization: shortness of breath Hospital Course: Ninfa Fisher is a 47 year old female That presented to arm urgency department with complaints of fever cough and discomfort due to excessive coughing with shortness of breath.? Patient has a past medical history of? high cholesterol and depression.? According to patient she has been sick for approximately 2 months now.? Patient notes that she went to her primary care physician on the and and was prescribed antibiotics.? She is unsure why she received antibiotics.? Patient tested positive for influenza on 10/16/2022. patient notes that her condition improved but worsened once again she continued to experience excessive coughing, and? shortness of breath. patient was admitted for influenza a and pneumonia she was also found to have a hematoma to her right rectus abdominal muscle. patient hemoglobin dropped due to a hematoma which was possibly caused by her forceful excessive coughing. Patient denies any trauma. Patient hemoglobin did drop to 6.7 she was infuse 1 unit of PRBCs it increased to 8.3. Patient's hemoglobin has been steady at 7 for the last 2 days. She will discharge home with azithromycin and Rocephin, guaifenesin Tessalon Perles, albuterol, Symbicort Medrol pack, lidocaine rinse, and abdominal binder. patient has a repeat H and H in 4 days results to primary care physician. patient does continue to complain of dizziness orthopedic blood pressure readings normal. Possible dizziness caused by viral infection. Patient instructed to rest and drink plenty of fluids. patient did not require any home oxygen. The patient denies CP, palpitation, extremity numbness, lightheadedness, constipation, diarrhea, chills, or fever. Discharge instructions reviewed with patient, as well as provided in writing per nursing staff. The instructions also include specific and strict return/GO TO THE ER as well as f/u information. All questions have been answered, and the patient and/or family deny any further questions with discharge and discharge plan. Time Spent with Patient Time attestation: Total time spent providing and/or coordinating
[2022-10-24] MEDS: ALBUTEROL SULFATE (*SP) INHALER 2 PUFF INHALATION (09:10)
[2022-10-24] MEDS: VENLAFAXINE HCL XR 75 MG CAP.ER.24H PO (09:11)
[2022-10-24] MEDS: CALCIUM CARBONATE (TUMS) 500 MG (200 MG ELEMENTAL) PO (09:11)
[2022-10-24] MEDS: methylPREDNISolone SOD SUCC 40 MG VIAL IV PUSH (09:11)
[2022-10-24] MEDS: SIMVASTATIN 10 MG TABLET 20 MG PO (09:11)
--- NOTE | 2022-10-24 10:35 | PC.NURSE ---
Discharge instructions reviewed with patient. Patient given an abdominal binder and instructed on use. All questions answered. Pt at bedside waiting on ride.
[2022-10-24 11:30] VITALS: O2SAT 91
[2022-10-24 22:48] LABS: Transferrin 326 mg/dL (188-341)
--- NOTE | 2022-10-26 12:34 | PC.NURSE ---
Pt states she received and understood her discharge instructions. Pt has no other comments.
== END 2022-10-24 11:20 | disposition home or self-care (01) | DRG 139 ==
LOC: CHSED 12:54 → CHS2ND 13:13
PROVIDERS: Nurse Practitioner; Nurse Practitioner Family; Admitting Provider Internal Medicine; Emergency Provider Internal Medicine Critical Care Medicine; PCP Family Medicine; Visit Provider Internal Medicine
DX: J10.00 Influenza due to other identified influenza virus with unspecified type of pneumonia (principal); D64.9 Anemia, unspecified; E78.5 Hyperlipidemia, unspecified; S30.1XXA Contusion of abdominal wall, initial encounter; F32.A Depression, unspecified; R09.02 Hypoxemia
CPT/HCPCS: 36415; 36430; 71045; 71275; 74176; 80048; 80053; 81001; 81025; 82607; 82728; 82746; 83540; 83550; 83605; 83615; 83735; 83880; 84443; 84466; 84484; 85025; 85027; 85046; 85380; 85610; 86850; 86900; 86901; 86920; 87040; 93005; 94618; 96361; 96365; 96367; 96372; 96375; 96376; 97161; 97165; 99285; A9270; G0378; G0379; J0456; J0696; J1650; J2405; J2920; J7050; P9016; Q9967; U0003; U0005